=== PATIENT | male | born 1985 | race Caucasian/White ===

== ENCOUNTER 2021-07-24 22:43 | Emergency (ER) | payer OTHER ==
[2021-07-24 22:55] VITALS: BP 132/81; PULSE 79; RESP 18; TEMP 97.9
--- NOTE | 2021-07-24 23:47 | XR ---
EXAMINATION TYPE: XR chest 2V DATE OF EXAM: 07/24/2021 COMPARISON: NONE HISTORY: Short of breath TECHNIQUE: 2 views FINDINGS: Heart and mediastinum are normal. Lungs are clear. Diaphragm is normal. Bony thorax is inta ct. IMPRESSION: Normal chest.
[2021-07-25] MEDS ORDERED: methylPREDNISolone SOD SUCCI 125 MG/2 ML VIAL IM ONE (00:15)
--- NOTE | 2021-07-25 00:18 | ED ---
URI HPI - General Chief Complaint: Upper Respiratory Infection Stated Complaint: SOFÍA Time Seen by Provider: 07/24/21 22:57 Source: patient Mode of arrival: ambulatory - History of Present Illness Initial Comments: 36 year-old male patient presents to the emergency department for evaluation of shortness of breath, cough, and sputum production for the last couple of weeks. Patient states that he has been taking Nyquil and Mucinex without relief. States that his breathing seemed to be getting worse so he came in for evaluation. He denies any current chest pain. Denies fever or chills. Has not had COVID vaccines. States he quit smoking 2 hours ago. States at times he feels wheezy. He denies nausea or vomiting. Denies any leg pain or swelling. Patient denies any recent rash, abdominal pain, diarrhea, constipation, back pain, numbness, tingling, dizziness, weakness, hematuria, dysuria, urinary urgency, urinary frequency, headache, visual changes, or any other complaints. - Related Data Home Medications Medication Instructions Recorded Confirmed Ibuprofen [Motrin] 800 mg PO Q6HR PRN 11/03/17 11/03/17 Previous Rx's Medication Instructions Recorded Orphenadrine [Norflex] 100 mg PO Q12H #10 tablet.er 11/03/17 Albuterol Sulfate [Proair Hfa] 1 - 2 puff INHALATION Q6HR PRN 07/25/21 #8.5 gm predniSONE 50 mg PO DAILY #5 tablet 07/25/21 Allergies Allergy/AdvReac Type Severity Reaction Status Date / Time No Known Allergies Allergy Verified 07/24/21 22:55 Review of Systems ROS Statement: Those systems with pertinent positive or pertinent negative responses have been documented in the HPI. ROS Other: All systems not noted in ROS Statement are negative. Past Medical History Additional Past Medical History / Comment(s): pain History of Any Multi-Drug Resistant Organisms: None Reported Past Surgical History: Orthopedic Surgery Additional Past Surgical History / Comment(s): wrist, lef leg Past Psychological History: ADD/ADHD, Depression Smoking Status: Current every day smoker Past Alcohol Use History: None Reported Past Drug Use History: Marijuana General Exam General appearance: alert, in no apparent distress, other (This is a well- developed, well-nourished adult male patient in no acute distress. Vital signs upon presentation are temperature 97.9F, pulse 79, respirations 18, blood pressure 132/81, pulse ox 98% on room air.) Eye exam: Present: normal appearance, PERRL, EOMI. Absent: scleral icterus, conjunctival injection, periorbital swelling ENT exam: Present: normal exam, normal oropharynx, mucous membranes moist Respiratory exam: Present: normal lung sounds bilaterally. Absent: respiratory distress, wheezes, rales, rhonchi, stridor Cardiovascular Exam: Present: regular rate, normal rhythm, normal heart sounds. Absent: systolic murmur, diastolic murmur, rubs, gallop, clicks GI/Abdominal exam: Present: soft, normal bowel sounds. Absent: distended, tenderness, guarding, rebound, rigid Neurological exam: Present: alert, oriented X3, CN II-XII intact Psychiatric exam: Present: normal affect, normal mood Skin exam: Present: warm, dry, intact, normal color. Absent: rash Course Vital Signs 07/24/21 22:52 Temperature 97.9 F Pulse Rate 79 Respiratory 18 Rate Blood Pressure 132/81 O2 Sat by Pulse 98 Oximetry Medical Decision Making - Medical Decision Making 36-year-old male patient presents to the emergency department today for evaluation of shortness of breath, cough, sputum production. Physical examination reveals clear equal lung sounds. He is in no respiratory distress. Vital signs were within normal ranges. Chest x-ray is negative. Tested negative for COVID-19. Symptoms consistent with bronchitis. To be treated with prednisone and an inhaler. He'll be discharged follow-up with his primary care physician as soon as possible. Return parameters were discussed in detail. He verbalizes understanding and agrees with this plan. My attending is Dr. Gant. - Lab Data Lab Results 07/24/21 Range/Units 23:18 Coronavirus (PCR) Not Detected (Not Detectd) - Radiology Data Radiology results: report reviewed, image reviewed 2 views of the chest are obtained. Report was reviewed in its entirety. Impression by Dr. Vicente shows normal chest. Disposition Clinical Impression: Bronchitis Disposition: HOME SELF-CARE Condition: Good Instructions (If sedation given, give patient instructions): Acute Bronchitis (ED) Additional Instructions: Take medication as directed. Follow up with primary care physician for recheck in 1-2 days. Return for any new, worsening, or concerning symptoms. Prescriptions: predniSONE 50 mg PO DAILY #5 tablet Albuterol Sulfate [Proair Hfa] 1 - 2 puff INHALATION Q6HR PRN #8.5 gm PRN Reason: Shortness Of Breath Is patient prescribed a controlled substance at d/c from ED?: No Referrals: None,Stated [Primary Care Provider] - 1-2 days Time of Disposition: 00:16
== END 2021-07-25 00:35 | disposition home or self-care (01) ==
LOC: EC 22:43
DX: J40 Bronchitis, not specified as acute or chronic (principal); F17.200 Nicotine dependence, unspecified, uncomplicated; Z20.822 Contact with and (suspected) exposure to COVID-19
CPT/HCPCS: 87635; 71046; 99285; 96372; J2930